=== PATIENT | female | born 1985 ===

== ENCOUNTER 2018-05-06 14:54 | Emergency (ER) | payer OTHER ==
[2018-05-06 14:55] VITALS: BMI 51.6
[2018-05-06 15:07] VITALS: BP 129/89; RESP 18; TEMP 98.7; O2SAT 100
[2018-05-06] MEDS ORDERED: Sodium Chloride 0.9% 1,000 ML IV SCH (15:15)
--- NOTE | 2018-05-06 15:34 | ED PDOC ---
HPI: General Adult Time Seen by Provider: 05/06/18 15:05 Chief Complaint (Nursing): Flu-like Symptoms Chief Complaint (Provider): Generalized Weakness History Per: Patient History/Exam Limitations: no limitations Onset/Duration Of Symptoms: Days (x3) Current Symptoms Are (Timing): Still Present Additional Complaint(s): 32 year old female presents to the ED for evaluation of generalized weakness associated with nausea and dizziness for the past three days. Patient states she was seen at the clinic today and was sent for blood work which she completed , but does not know the results of. Denies taking medication prior to arrival. Patient states she cannot verbalize how she feels, stating "just weak". No other complaints at present. Patient further reports she accompanied her mother to the ED for evaluation and figured she would get checked out as well. Otherwise, (-) fever, (-) vomiting, (-) dysuria, (-) abdominal pain, (-) recent travel, (-) chest pain, (-) shortness of breath (-) vomiting. Of note, she had a colposcopy on 04/19/18 without any complications. LNMP: 04/22/2018 PMD: [facility] Past Medical History Reviewed: Historical Data, Nursing Documentation, Vital Signs Vital Signs: Last Vital Signs Temp 98.7 F 05/06/18 15:04 Pulse 95 H 05/06/18 19:38 Resp 18 05/06/18 15:04 BP 129/89 05/06/18 15:04 Pulse Ox 100 05/09/18 23:03 - Medical History PMH: Hypercholesterolemia - Surgical History Other surgeries: colposcopy - Family History Family History: States: Hypertension - Social History Current smoker - smoking cessation education provided: No Alcohol: None Drugs: Denies - Home Medications Home Medications: Ambulatory Orders Medication Instructions Recorded [id number] Ethyl Esters [OMEGA 3] 1,000 mg PO DAILY 04/04/16 Metoclopramide HCl [Reglan] 10 mg PO Q8 PRN #12 tablet 05/06/18 - Allergies Allergies/Adverse Reactions: Allergies Allergy/AdvReac Type Severity Reaction Status Date / Time ampicillin Allergy Intermediate Verified 03/05/18 03:55 Penicillins Allergy Intermediate Verified 03/05/18 03:55 Sulfa (Sulfonamide Allergy Intermediate Verified 03/05/18 03:55 Antibiotics) Review of Systems ROS Statement: Except As Marked, All Systems Reviewed And Found Negative Constitutional: Positive for: Weakness (generalized). Negative for: Fever Cardiovascular: Negative for: Chest Pain Respiratory: Negative for: Shortness of Breath Gastrointestinal: Positive for: Nausea. Negative for: Vomiting, Abdominal Pain Genitourinary Female: Negative for: Dysuria Neurological: Positive for: Dizziness Physical Exam - Reviewed Nursing Documentation Reviewed: Yes Vital Signs Reviewed: Yes - Physical Exam Comments: GENERALIZED APPEARANCE: Patient is awake, alert, oriented x3 in no acute distress. Resting comfortably. SKIN: Warm, dry; (-) cyanosis. EYES: (-) conjunctival pallor or injection. ENMT: Mucous membranes moist. Pharynx: clear, uvula midline (-) erythema (-) bulging. Airway patent, (-) stridor. NECK: Supple, FROM(-) tenderness, (-) stiffness, (-) lymphadenopathy. CHEST AND RESPIRATORY: (-) rales, (-) rhonchi, (-) wheezes; breath sounds equal bilaterally. Speaking in full sentences, respirations even and nonlabored. HEART AND CARDIOVASCULAR: (-) irregularity; (-) murmur, (-) gallop. ABDOMEN AND GI: Soft; (-) distention, (-) tenderness, (-) rebound, (-) guarding , (-) palpable masses, (-) flank tenderness. EXTREMITIES: (-) deformity; (-) edema. Distal pulses: present. NEURO AND PSYCH: Mental status as above. mangle tender: (-) nystagmus; Pupils EOMI and painless, (-) facial asymmetry; (-) aphasia; tongue and uvula midline. Strength symmetric. Gait: normal. Cerebellar tests intact. - Laboratory Results Result Diagrams: 05/06/18 15:30 05/06/18 15:30 Urine POC: Negative Urine dip results: Positive for: Protein (30). Negative for: Leukocyte Esterase , Blood, Nitrate, Ketones, Glucose, Bilirubin - ECG O2 Sat by Pulse Oximetry: 100 (RA) Pulse Ox Interpretation: Normal Medical Decision Making Medical Decision Making: Time: 1513 Initial Impression: generalized weakness, nausea, dizziness Initial Plan: --EKG --CMP --Urine --Urine dipstick --CBC with differential --Antivert 25 mg PO --Normal saline IV 1L --Reglan 10 mg IVP --Head CT without contrast 1550 EKG: Sinus tach @ 114bpm (-) ST elevation, QTc 438 1605 Patient refused Antivert and Reglan at this time stating she is not dizzy or nauseous. Head CT cancelled. Patient states she just wants IVF at this time. 1620 Udip reviewed and unremarkable. 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 Denies personal or family history of anxiety, suicidal / homicidal ideation, and auditory / visual hallucinations. 1844 Crisis at bedside. 1939 Repeat HR: 95 Pending crisis disposition. 2004 Per crisis evaluation, patient to be discharge with diagnosis of Anxiety per Dr Butterfield. Outpatient follow up as arranged by [facility]. On re-evaluation, patient reports no additional symptoms. On exam, patient remains AAOx3, in no acute distress. Neck is supple, lungs CTA, cardiac RRR, abdomen is soft and non-tender, neuro exam shows no focal findings. VSS, stable for discharge. Diagnostic results d/w the patient in great detail. Dx of malaise/fatigue, anxiety d/w the patient. Based on history, exam and diagnostic results plan will be for discharge and outpatient follow up. Advised to follow up with primary care physician in 1-2 days without fail. Advised to take medication as prescribed. Return to the emergency room at any time for any new or worsening symptoms. Patient states she fully agrees with and understands discharge instructions. States that she agrees with the plan and disposition. Verbalized and repeated discharge instructions and plan. I have given the patient opportunity to ask any additional questions. Scribe Attestation: Documented by Nia Mora, acting as a scribe for Marysol Buckner PA-C. Provider Scribe Attestation: All medical record entries made by the Scribe were at my direction and personally dictated by me. I have reviewed the chart and agree that the record accurately reflects my personal performance of the history, physical exam, medical decision making, and the department course for this patient. I have also personally directed, reviewed, and agree with the discharge instructions and disposition. Disposition - Clinical Impression Clinical Impression: Fatigue, Malaise, Anxiety - Patient ED Disposition Is Patient to be Admitted: No Counseled Patient/Family Regarding: Studies Performed, Diagnosis, Need For Followup, Rx Given - Disposition Referrals: FAMILY PROVIDER,NO [Family Provider] - Disposition: Routine/Home Disposition Time: 20:08 Condition: STABLE Additional Instructions: FOLLOW UP WITH PMD IN 1-2 DAYS WITHOUT FAIL FOR FURTHER EVALUATION OF FATIGUE. FOLLOW UP DIRECTED BY CRISIS FOR EVALUATION OF ANXIETY. RETURN TO ED WITH ANY NEW OR WORSENING SYMPTOMS. Prescriptions: Metoclopramide HCl [Reglan] 10 mg PO Q8 PRN #12 tablet PRN Reason: DIZZINESS, NAUSEA Instructions: Anxiety, Adult (DC), Fatigue Forms: [employer] ([place]) Print Language: TURKISH - POA Present On Arrival: None Results - Lab Results Lab Results: 05/06/18 05/06/18 15:30 15:30 WBC 6.1 RBC 4.37 Hgb 12.9 Hct 38.1 MCV 87.3 MCH 29.5 MCHC 33.8 RDW 14.7 H Plt Count 272 MPV 7.8 Neut % (Auto) 60.6 Lymph % (Auto) 31.2 [place] % (Auto) 5.8 Eos % (Auto) 1.9 Baso % (Auto) 0.5 Neut # (Auto) 3.7 Lymph # (Auto) 1.9 [place] # (Auto) 0.4 Eos # (Auto) 0.1 Baso # (Auto) 0.0 Sodium 140 Potassium 4.2 Chloride 104 Carbon Dioxide 24 Anion Gap 16 BUN 12 Creatinine 0.8 Est GFR ( Amer) > 60 Est GFR (Non-Af Amer) > 60 Random Glucose 111 H Calcium 9.0 Total Bilirubin 0.3 AST 30 ALT 37 Alkaline Phosphatase 89 Total Protein 7.3 Albumin 4.4 Globulin 2.9 Albumin/Globulin Ratio 1.5
[2018-05-06 15:46] LABS: BASO % 0.5 % (0.0-2.0); EOS # 0.1 K/uL (0.0-0.7); EOS % 1.9 % (0.0-4.0); HEMOGLOBIN 12.9 g/dL (12.0-16.0); LYMPH # 1.9 K/uL (1.0-4.3); LYMPH % 31.2 % (20.0-40.0); MEAN CELL VOLUME 87.3 fl (81.0-99.0); MEAN CORPUSCULAR HEMOGLOBIN 29.5 pg (27.0-31.0); MEAN CORPUSCULAR HGB CONC 33.8 g/dL (33.0-37.0); MEAN PLATELET VOLUME 7.8 fl (7.2-11.7); MONO # 0.4 K/uL (0.0-0.8); MONO % 5.8 % (0.0-10.0); NEUT # 3.7 K/uL (1.8-7.0); NEUT % 60.6 % (50.0-75.0); NRBC % 0.1 % (0.0-0.0); RBC 4.37 Mil/uL (3.80-5.20); RED CELL DISTRIBUTION WIDTH 14.7 % (11.5-14.5); WHITE BLOOD COUNT 6.1 K/uL (4.8-10.8)
[2018-05-06 16:04] LABS: ALB/GLOB RATIO 1.5 (1.0-2.1); ALBUMIN 4.4 g/dL (3.5-5.0); ALT/SGPT 37 U/L (9-52); AST/SGOT 30 U/L (14-36); BLOOD UREA NITROGEN 12 mg/dl (7-17); GFR AFRICAN-AMERICAN > 60; GFR NON-AFRICAN AMERICAN > 60
[2018-05-06 19:38] VITALS: PULSE 95
--- NOTE | 2018-05-07 18:26 | CARD ---
APPROVED REPORT EKG Measurement Heart [id number] <Conclusion> Sinus tachycardia Low voltage QRS Borderline ECG
== END 2018-05-06 20:18 | disposition home or self-care (01) ==
LOC: H.ER 14:54
DX: R53.81 Other malaise (principal); R53.83 Other fatigue; F41.9 Anxiety disorder, unspecified; Z88.0 Allergy status to penicillin; E78.00 Pure hypercholesterolemia, unspecified
CPT/HCPCS: 80053; 85025; 93005; 99284; J7030

== ENCOUNTER 2018-05-17 01:52 | Emergency (ER) | payer OTHER ==
[2018-05-17 01:52] VITALS: BMI 51.6
[2018-05-17 02:08] VITALS: O2SAT 99
--- NOTE | 2018-05-17 02:17 | ED PDOC ---
HPI: Psych/Substance Abuse Time Seen by Provider: 05/17/18 02:02 Chief Complaint (Nursing): Anxiety Chief Complaint (Provider): Anxiety History Per: Patient History/Exam Limitations: no limitations Onset/Duration Of Symptoms: Hrs (prior to arrival) Additional Complaint(s): Silvia Mccollum is a 32 y/o female with a history of depression and anxiety who present to the ED complaining of anxiety. Patient reports that she was feeling very anxious and it was interfering with her ability to sleep. Patient has a prescription for Vistaril but denies taking it. She has no suicidal or homicidal ideation. She also denies any hallucinations. Past Medical History Reviewed: Historical Data, Nursing Documentation, Vital Signs Vital Signs: Last Vital Signs Temp 99.4 F 05/17/18 02:03 Pulse 104 H 05/17/18 02:03 Resp 20 05/17/18 02:03 BP 141/86 05/17/18 02:03 Pulse Ox 99 05/17/18 02:03 - Medical History PMH: Anxiety, Depression, Hypercholesterolemia Denies: HIV, Seizures, Sexually Transmitted Disease - Surgical History Surgical History: No Surg Hx - Family History Family History: States: Unknown Family Hx, Hypertension - Immunization History Hx Tetanus Toxoid Vaccination: No Hx Influenza Vaccination: No Hx Pneumococcal Vaccination: No - Home Medications Home Medications: Ambulatory Orders Medication Instructions Recorded Jmtwj-9-Pese Ethyl Esters [OMEGA 3] 1,000 mg PO DAILY 04/04/16 Metoclopramide HCl [Reglan] 10 mg PO Q8 PRN #12 tablet 05/06/18 hydrOXYzine HCl [Atarax] 50 mg PO Q6 PRN #30 tab 05/11/18 - Allergies Allergies/Adverse Reactions: Allergies Allergy/AdvReac Type Severity Reaction Status Date / Time ampicillin Allergy Intermediate RASH Verified 05/17/18 02:03 Penicillins Allergy Intermediate RASH Verified 05/17/18 02:03 Sulfa (Sulfonamide Allergy Intermediate PAIN Verified 05/17/18 02:03 Antibiotics) Review of Systems ROS Statement: Except As Marked, All Systems Reviewed And Found Negative Constitutional: Negative for: Fever Psych: Positive for: Anxiety Physical Exam - Reviewed Nursing Documentation Reviewed: Yes Vital Signs Reviewed: Yes - Physical Exam Appears: Positive for: Non-toxic, No Acute Distress Head Exam: Positive for: ATRAUMATIC, NORMOCEPHALIC Skin: Positive for: Normal Color, Warm, Dry Eye Exam: Positive for: EOMI, Normal appearance, PERRL Neck: Positive for: Normal, Painless ROM, Supple Cardiovascular/Chest: Positive for: Regular Rate, Rhythm. Negative for: Murmur Respiratory: Positive for: Normal Breath Sounds. Negative for: Respiratory Distress Gastrointestinal/Abdominal: Positive for: Normal Exam, Soft. Negative for: Tenderness Back: Positive for: Normal Inspection. Negative for: L CVA Tenderness, R CVA Tenderness Extremity: Positive for: Normal ROM. Negative for: Pedal Edema, Deformity Neurologic/Psych: Positive for: Alert, Oriented. Negative for: Motor/Sensory Deficits - ECG O2 Sat by Pulse Oximetry: 99 (RA) Pulse Ox Interpretation: Normal Medical Decision Making Medical Decision Making: Time: 02:08 Initial Impression: 32 y/o female with anxiety Initial Plan: --crisis evaluation --reevaluation Time: 02:29 --Patient is stable for discharge after crisis evaluation --Diagnosis is anxiety and panic disorder Upon provider reevaluation patient is feeling better, is medically stable, and requires no further treatment in the ED at this time. Counseling was provided and all questions were answered regarding diagnosis. There is agreement to discharge plan. Return if symptoms persist or worsen. Scribe Attestation: Documented by Giorgi Brown, acting as a scribe for Lobo Wheeler MD. Provider Scribe Attestation: All medical record entries made by the Scribe were at my direction and personally dictated by me. I have reviewed the chart and agree that the record accurately reflects my personal performance of the history, physical exam, medical decision making, and the department course for this patient. I have also personally directed, reviewed, and agree with the discharge instructions and disposition. Disposition - Clinical Impression Clinical Impression: Anxiety attack - Patient ED Disposition Is Patient to be Admitted: No - Disposition Disposition: Routine/Home Disposition Time: 02:29 Condition: STABLE Additional Instructions: SILVIA MCCOLLUM, thank you for letting us take care of you today. Your provider was Lobo Wheeler MD and you were treated for ANXIETY. The emergency medical care you received today was directed at your acute symptoms. If you were prescribed any medication, please fill it and take as directed. It may take several days for your symptoms to resolve. Return to the Emergency Department if your symptoms worsen, do not improve, or if you have any other problems. Please contact your doctor or call one of the physicians/clinics you have been referred to that are listed on the Patient Visit Information form that is included in your discharge packet. Bring any paperwork you were given at discharge with you along with any medications you are taking to your follow up visit. Our treatment cannot replace ongoing medical care by a primary care provider outside of the emergency department. Thank you for allowing the [facility] team to be part of your care today. Instructions: Panic Disorder Forms: [employer] ([place])
[2018-05-17 04:24] VITALS: BP 127/81; PULSE 85; RESP 16; TEMP 98.3
== END 2018-05-17 04:11 | disposition home or self-care (01) ==
LOC: H.ER 01:52
DX: F41.0 Panic disorder [episodic paroxysmal anxiety] (principal); E78.00 Pure hypercholesterolemia, unspecified; F32.9 Major depressive disorder, single episode, unspecified; Z88.0 Allergy status to penicillin